=== PATIENT | female | born 1990 | race Caucasian/White ===

== ENCOUNTER 2018-09-18 23:10 | Emergency (ER) | payer SELFPAY ==
[~2018-09-18] VITALS: Ht 160 cm; Wt 67.4 kg
[~2018-09-18 23:10] MED LIST: CYCL10TA7 PO; IBUP-1542 PO
[2018-09-18 23:16] VITALS: Ht 160 cm; Wt 67.4 kg
[2018-09-19] MEDS ORDERED: KETOROLAC 30 MG INJ IM STA (01:15)
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
[2018-09-19 03:37] VITALS: BP 111/60; PULSE 68; RESP 18
== END 2018-09-19 03:38 | disposition home or self-care (01) ==
LOC: FTE 23:10
DX: S10.93XA Contusion of unspecified part of neck, initial encounter (principal); S20.212A Contusion of left front wall of thorax, initial encounter; V43.52XA Car driver injured in collision with other type car in traffic accident, initial encounter
CPT/HCPCS: 71046; 72040; 81025; 96372; 99284; J1885